=== PATIENT | male | born 1935 | race Caucasian/White ===

== ENCOUNTER 2020-02-05 03:10 | Observation (INO) | payer MEDICARE, BC ==
[2020-02-05 05:11] LABS: Troponin I 0.018 ng/mL (< 0.028)
[2020-02-05] MEDS ORDERED: HYDROcodone/Acetaminophen 5/325 mg Tablet PO PRN (06:19)
[2020-02-05 06:45] VITALS: BMI 25.4
--- NOTE | 2020-02-05 07:26 | HP ---
REASON FOR ADMISSION: Chest pain. HISTORY OF PRESENT ILLNESS: This is an 84-year-old male patient who is presenting for chest pain history going back to the day of his presentation. He reported that he has pain in the middle of his chest, but having difficulty explaining his symptoms, seems that his pain is in the substernal area and it has been intermittent. Of note, the patient does have dementia. When I went to see him, he was lying comfortably in his stretcher. He does appear to have facial bruising. It was documented that the family claimed that it was not related to his chest pain, but also they did report that he fell earlier today while walking. PAST MEDICAL HISTORY: Dementia. ALLERGIES: UNABLE TO OBTAIN. FAMILY HISTORY: Unable to obtain. REVIEW OF SYSTEMS: Unable to obtain due to his dementia. PHYSICAL EXAMINATION: GENERAL: Awake, alert, disoriented, and does not appear in distress. VITAL SIGNS: His blood pressure is 118/73, heart rate of 65, saturating 97% room on air. HEENT: Examination of his head reveals ecchymosis around his nose. NECK: Supple. No adenopathy. No murmur. Thyroid is not palpable. Trachea is midline. No supraclavicular lymphadenopathy. HEART: S1 and S2 regular. No murmur. No gallops. No frictional rubs. Upon palpation of his sternum, I can reproduce some of his pain that he is reporting. LUNGS: Clear to auscultation bilaterally. No wheezes, no rhonchi, no crackles. ABDOMEN: Bowel sounds are positive. Nontender abdomen. No hepatosplenomegaly. EXTREMITIES: No lower extremity edema. No cyanosis. NEURO: He is able to move all his four extremities. His cranial nerves appeared to be intact. LABORATORY DATA: Blood work shows WBC 10.9, hemoglobin 13.6, platelets of 203. Sodium 142, potassium 4.1, bicarb 19, BUN 29, creatinine 1.27. No previous labs to compare. His glucose is 208. His troponin 0.018. Initial troponin 0.017. BNP of 131.6. EKG shows normal sinus rhythm. No evidence of ischemia as per my read. ASSESSMENT AND PLAN: This is an 84-year-old male patient who seems to have fallen yesterday. He did report some chest pain, most likely it is related to his fall. His second troponin remains negative. I did have a chance to speak with his daughter and she said that he is not known to be diabetic, that he did have bleeding ulcers in the 60s and had a gastrectomy done, but otherwise he has been healthy ever since, except for his dementia. The patient will be observed on telemetry and will do another troponin. Otherwise, I will check an A1c just to make sure that this elevation of his glucose is incidental and we will recheck another creatinine and BUN to make sure that his kidney function improves or remains stable. We will provide him with [place] for pain control and will ask Physical Therapy to assess him in the setting of his fall. I did discuss the code status with his daughter and she wishes him to be a full code. Job ID: [id number]
[2020-02-05 08:57] LABS: Hemoglobin A1c 5.3 % (4.0-6.0)
[2020-02-05 09:11] LABS: Anion Gap 12 mmol/L (10-20); BUN (Urea Nitrogen) 22 mg/dL (8.4-25.7); Calc. Creatinine Clearance 50 mL/min (70-130); Calcium 9.1 mg/dL (7.8-10.44); Carbon Dioxide 23 mmol/L (23-31); Chloride 108 mmol/L (98-107); Estimated GFR-MDRD 66; Glucose 163 mg/dL (83-110); Potassium 4.1 mmol/L (3.5-5.1); Sodium 139 mmol/L (136-145)
[2020-02-05 09:15] LABS: Troponin I 0.023 ng/mL (< 0.028)
[2020-02-05] MEDS: Aspirin 81 mg Enteric Coated Tablet PO SCH ×2 (10:18→10:27)
[2020-02-05] MEDS ORDERED: Aspirin 81 mg Enteric Coated Tablet PO SCH (10:30)
[2020-02-05 15:45] VITALS: BP 109/64; TEMP 98.2
--- NOTE | 2020-02-06 13:06 | DIS ---
DATE OF ADMISSION: 02/05/2020 DATE OF DISCHARGE: 02/05/2020 HOSPITAL COURSE: Mr. Geronimo is an 84-year-old male with a medical history of dementia and shuffling gait per the daughter, who presented for a mechanical fall on the chest. After fall, the patient complained of chest pain, so was admitted for further workup. Chest x-ray showed no acute cardiopulmonary processes or rib fractures, and the pain was reproducible as well as positional. The pain significantly improved after the patient received low dose [place]. CT of the head suggestive of some ventriculomegaly, however, the Grant' index was less than 0.31, the patient did not exhibit symptoms suggestive of normal-pressure hydrocephalus. The patient was diagnosed with mechanical fall resulting in chest trauma and noncardiac chest pain. He was discharged home after chest pain resolved, hemodynamically stable with no other complaints. MEDICATIONS: New medication; [place] p.r.n. pain for three more days. Continued medications: Aspirin. Job ID: [id number] MTDD
--- NOTE | 2020-02-06 15:33 | EKG ---
Test Reason : Blood Pressure : / mmHG Vent. Rate : 061 BPM Atrial Rate : 061 BPM P-R Int : 184 ms QRS Dur : 076 ms QT Int : 426 ms P-R-T Axes : 048 034 028 degrees QTc Int : 428 ms Sinus rhythm with Premature atrial complexes No STEMI Otherwise normal ECG Confirmed by GISELA ALVAREZ M.D. ([id number]), general expeditor SARAHY STOKES ([id number] on 02/06/2020 3:33:19 PM Referred By: Confirmed By:GISELA ALVAREZ M.D.
== END 2020-02-05 17:22 | disposition home or self-care (01) ==
LOC: ERS 03:10 → 2SE 06:02 → MERGE 06:02
PROVIDERS: ADMIT Internal Medicine; ATTEND Internal Medicine
DX: R07.89 Other chest pain (principal); F03.90 Unspecified dementia, unspecified severity, without behavioral disturbance, psychotic disturbance, mood disturbance, and anxiety; Z79.82 Long term (current) use of aspirin; W18.30XA Fall on same level, unspecified, initial encounter
CPT/HCPCS: 80048; 83036; 84484 ×2; 93005; 97116; 99285; G0378 ×2; 36415